=== PATIENT | female | born 1970 | race Caucasian/White ===

== ENCOUNTER 2016-09-15 16:46 | Inpatient (IN) | payer OTHER ==
[~2016-09-15] VITALS: Ht 175.3 cm; Wt 112.8 kg
[~2016-09-15 16:46] MED LIST: ASPI-496 PO; EMPA25TA PO; FENO145T13 PO; FURO20TA3 PO; GEMF600T3 PO; LISI-167 PO; LISI10TA2 PO; MECL-76 PO; METF10002 PO; METF500T4 PO; METO25TA35 PO; OMEP20CA14 PO; ONDA4TAB10 PO; POTA10TA11 PO; PRAV20TA2 PO; SIMV20TA PO; victoza INJ
[2016-09-15] MEDS ORDERED: SODIUM CHLORIDE 0.9% 1,000ML IVBOLUS ONE (17:00)
[2016-09-15] MEDS ORDERED: DIPHENHYDRAMINE 50 MG/ML, 1ML IVPush ONE (17:00)
[2016-09-15] MEDS ORDERED: SODIUM CHLORIDE FLUSH 10ML SYR IVF ONE (17:00)
[2016-09-15] MEDS ORDERED: PROCHLORPERAZINE 5 MG/ML, 2ML IVPush ONE (17:00)
[2016-09-15] MEDS ORDERED: PROCHLORPERAZINE 5 MG/ML, 2ML ONE (17:18)
[2016-09-15] MEDS ORDERED: DIPHENHYDRAMINE 50 MG/ML, 1ML ONE (17:18)
[2016-09-15 17:25] LABS: BLOOD UREA NITROGEN 19 mg/dL (7-18)
[2016-09-15] MEDS ORDERED: PLEASE ENTER HEIGHT AND WEIGHT MC SCH (17:30)
[2016-09-15 17:31] LABS: ASPARTATE AMINO TRANSFERASE 28 U/L (15-37)
[2016-09-15 17:36] LABS: IS PT STATUS REG ER OR PRE ER? YES
[2016-09-15] MEDS ORDERED: ONDANSETRON 2MG/ML, 2ML IVPush PRN (19:00)
[2016-09-15] MEDS ORDERED: POLYETHYLENE GLYCOL 17 GM PACKET PO PRN (19:00)
[2016-09-15] MEDS ORDERED: BISACODYL 10 MG SUPP PR PRN (19:00)
[2016-09-15] MEDS ORDERED: ASPIRIN 325 MG TABLET PO ONE (19:00)
[2016-09-15] MEDS ORDERED: MECLIZINE CHEWABLE 25 MG TAB PO PRN (19:00)
[2016-09-15] MEDS ORDERED: ACETAMINOPHEN 325 MG TABLET PO PRN (19:00)
[2016-09-15] MEDS ORDERED: GLUCAGON 1 MG IM PRN (19:30)
[2016-09-15] MEDS ORDERED: DEXTROSE 4 GM TAB.CHEW PO PRN (19:30)
[2016-09-15] MEDS ORDERED: DEXTROSE 50%, 50ML SYRINGE IVPush PRN (19:30)
[2016-09-15] MEDS ORDERED: OMNIPAQUE 350 MG/ML, 100ML BOTTLE ONE (19:51)
[2016-09-15] MEDS ORDERED: LISINOPRIL 20 MG TABLET PO SCH (21:00)
[2016-09-15] MEDS ORDERED: METOPROLOL TARTRATE 25 MG TABLET PO SCH (21:00)
[2016-09-15] MEDS ORDERED: metFORMIN 500 MG TABLET PO SCH (21:00)
[2016-09-15 22:09] VITALS: BP 146/80
[2016-09-15] MEDS: SODIUM CHLORIDE FLUSH 10ML SYR IVF SCH (22:50)
[2016-09-15] MEDS: HEPARIN 5,000 UNITS/ML, 1ML SQ SCH (22:50)
[2016-09-15] MEDS: SODIUM CHLORIDE FLUSH 3ML SYRINGE IVF SCH (22:51)
[2016-09-16 00:30] VITALS: BP 119/78
[2016-09-16] MEDS: HEPARIN 5,000 UNITS/ML, 1ML SQ SCH ×3 (03:00→19:00)
[2016-09-16] MEDS: ASPIRIN 81 MG TABLET EC PO SCH (05:57)
[2016-09-16 06:17] LABS: ASPARTATE AMINO TRANSFERASE 28 U/L (15-37); BLOOD UREA NITROGEN 20 mg/dL (7-18)
[2016-09-16 07:51] VITALS: BP 111/71
[2016-09-16] MEDS ORDERED: MIDAZOLAM 1 MG/ML, 5ML ONE (08:12)
[2016-09-16] MEDS ORDERED: FENTANYL PF 100 MCG/2ML ONE (08:13)
[2016-09-16] MEDS ORDERED: NALOXONE 1 MG/ML, 2ML ONE (08:13)
[2016-09-16] MEDS ORDERED: FLUMAZENIL 0.1 MG/1 ML, 5ML ONE (08:13)
[2016-09-16] MEDS: SODIUM CHLORIDE FLUSH 3ML SYRINGE IVF SCH ×2 (09:00→21:00)
[2016-09-16] MEDS: SENNA/DOCUSATE TABLET PO SCH (09:00)
[2016-09-16] MEDS ORDERED: FUROSEMIDE 20 MG TABLET PO SCH (09:00)
[2016-09-16] MEDS: POTASSIUM CHLORIDE 10 MEQ TABLET.ER PO SCH (09:30)
[2016-09-16] MEDS: SODIUM CHLORIDE FLUSH 10ML SYR IVF SCH ×2 (09:31→21:27)
[2016-09-16] MEDS: metFORMIN 500 MG TABLET PO SCH (12:05)
[2016-09-16 13:59] VITALS: BP 113/72
[2016-09-16 20:00] VITALS: BP 131/82
[2016-09-16] MEDS ORDERED: ATORVASTATIN 40 MG TABLET PO SCH (21:00)
[2016-09-16] MEDS ORDERED: metFORMIN 500 MG TABLET PO SCH (21:00)
[2016-09-17 02:00] VITALS: BP 147/80
[2016-09-17] MEDS: HEPARIN 5,000 UNITS/ML, 1ML SQ SCH ×2 (03:00→09:36)
[2016-09-17] MEDS: ASPIRIN 81 MG TABLET EC PO SCH (05:28)
[2016-09-17 06:33] LABS: BLOOD UREA NITROGEN 16 mg/dL (7-18)
[2016-09-17 06:34] LABS: ASPARTATE AMINO TRANSFERASE 32 U/L (15-37)
[2016-09-17 07:50] VITALS: BP 128/90
[2016-09-17] MEDS: SODIUM CHLORIDE FLUSH 3ML SYRINGE IVF SCH (09:00)
[2016-09-17] MEDS: SENNA/DOCUSATE TABLET PO SCH (09:00)
[2016-09-17] MEDS: POTASSIUM CHLORIDE 10 MEQ TABLET.ER PO SCH (09:35)
[2016-09-17] MEDS: SODIUM CHLORIDE FLUSH 10ML SYR IVF SCH (09:36)
[2016-09-17] MEDS: metFORMIN 500 MG TABLET PO SCH (13:37)
[2016-09-17 13:57] VITALS: BP 129/86
[2016-09-17] MEDS ORDERED: ATOR40TA78 PO (15:47)
[2016-09-18 12:07] LABS: HGB A1C 8.6 %Hb (.)
== END 2016-09-17 16:58 | disposition home or self-care (01) | DRG 312 ==
LOC: ED 18:24 → EDIP 18:25 → ED 18:52 → 4WST 21:30 → DCLOUNGE 09-17 16:41
PROVIDERS: ADMIT Family Medicine; ATTEND Family Medicine
DX: R55 Syncope and collapse (principal); E11.42 Type 2 diabetes mellitus with diabetic polyneuropathy; E66.01 Morbid (severe) obesity due to excess calories; E78.5 Hyperlipidemia, unspecified; Z87.891 Personal history of nicotine dependence; Z79.82 Long term (current) use of aspirin; E11.65 Type 2 diabetes mellitus with hyperglycemia; E78.1 Pure hyperglyceridemia; I11.9 Hypertensive heart disease without heart failure; Z79.899 Other long term (current) drug therapy; Z68.36 Body mass index [BMI] 36.0-36.9, adult; Z90.49 Acquired absence of other specified parts of digestive tract; Z81.3 Family history of other psychoactive substance abuse and dependence; Z79.84 Long term (current) use of oral hypoglycemic drugs
CPT/HCPCS: 36415; 70450; 70498; 70551; 71010; 80053; 80061; 82962; 83036; 83735; 84484; 85025; 93005; 93306; 95819; 96361; 96374; 96375; 99156; 99157; J2250; J3010; Q9967; J0780; J1200; J2310; J7030

== ENCOUNTER 2016-11-16 10:52 | Day surgery (SDC) | payer OTHER ==
[~2016-11-16] VITALS: Ht 172.7 cm; Wt 111.4 kg
[~2016-11-16 10:52] MED LIST changes: +ATOR40TA78 PO
[2016-11-16] MEDS ORDERED: SODIUM CHLORIDE 0.9% 1,000 ML IV SCH (11:30)
[2016-11-16] MEDS ORDERED: PLEASE ENTER HEIGHT AND WEIGHT MC SCH (11:30)
[2016-11-16] MEDS ORDERED: LACT1CAP35 PO (11:33)
[2016-11-16] MEDS ORDERED: UBID100C11 PO (11:33)
[2016-11-16] MEDS ORDERED: VITA1TAB19 PO (11:33)
[2016-11-16] MEDS ORDERED: METF10002 PO (11:35)
[2016-11-16] MEDS ORDERED: ATOR40TA PO (11:35)
[2016-11-16] MEDS ORDERED: METO25TA35 PO (11:35)
[2016-11-16] MEDS ORDERED: MECL25TA3 PO (11:37)
[2016-11-16] MEDS ORDERED: PROPOFOL 10 MG/ML, 20ML ONE (12:23)
[2016-11-16] MEDS ORDERED: ONDANSETRON 2MG/ML, 2ML ONE (13:10)
[2016-11-16] MEDS ORDERED: ENALAPRILAT 1.25 MG/ML, 2ML ONE (13:16)
[2016-11-16] MEDS ORDERED: ONDANSETRON 2MG/ML, 2ML IVPush ONE (13:30)
[2016-11-16] MEDS ORDERED: ENALAPRILAT 1.25 MG/ML, 2ML IV ONE (13:30)
== END 2016-11-16 14:30 | disposition home or self-care (01) ==
LOC: CACL 10:52
PROVIDERS: ATTEND Internal Medicine Cardiovascular Disease
DX: I51.7 Cardiomegaly (principal); I10 Essential (primary) hypertension; E78.5 Hyperlipidemia, unspecified; E11.9 Type 2 diabetes mellitus without complications; E11.40 Type 2 diabetes mellitus with diabetic neuropathy, unspecified; R55 Syncope and collapse
CPT/HCPCS: 93312; 93321; 93325; J2405; J2704